=== PATIENT | male | born 1995 | race Caucasian/White ===

== ENCOUNTER 2018-08-06 23:23 | Emergency (ER) | payer MEDICAID ==
[~2018-08-06] VITALS: Ht 185.4 cm; Wt 65.8 kg
[2018-08-06] MEDS ORDERED: GENVOYA TABLET1 EACH PO (23:29)
[2018-08-06 23:38] VITALS: BP 128/77
[2018-08-06] MEDS ORDERED: Bactrim-DS 1 tab ORAL ONE (23:45)
--- NOTE | 2018-08-06 23:46 | Emergency Room Report ---
History of Present Illness General Chief Complaint: Abdominal Pain Source: Patient Present Illness HPI This is a 23-year-old male with a history of HIV but not on medication for last 6 months. He presents with chief complaint of rectal bleeding. This is a chronic problem for many months. He had colonoscopy done at [facility] in [place] over the summer. He was told that he had internal hemorrhoids and polyps. He said the bleeding is worse. He also complaining of an abscess to his right arm that's been draining. Denies any fever or chills. Denies any nausea vomiting. Has some abdominal cramping pain. Did not have a endoscopy. No other complaint. Rectal bleeding is bright red blood. No pain. Last anal sex was a week ago. Allergies: Coded Allergies: No Known Allergies (Unverified , 08/06/18) Patient History Past Medical History: see triage record, old chart reviewed, HIV Past Surgical History: other Pertinent Family History: none Social History: Denies: smoking Immunizations: other Reviewed Nursing Documentation: PMH: Agreed; PSxH: Agreed Nursing Documentation-PMH Hx Cardiac Problems: No - HIV/SIDS History Of Psychiatric Problem: Yes Review of Systems Eye: Denies: eye pain, blurred vision ENT: Denies: ear pain, nose congestion, throat swelling Respiratory: Denies: cough, shortness of breath Cardiovascular: Denies: chest pain, palpitations Gastrointestinal: Denies: abdominal pain, diarrhea, nausea, vomiting Musculoskeletal: Denies: back pain, joint pain Skin: Denies: rash Neurological: Denies: headache, numbness Endocrine: Denies: increased thirst, increased urine Hematologic/Lymphatic: Denies: easy bruising All Other Systems: negative except mentioned in HPI Physical Exam Vital Signs Date Time Temp Pulse Resp B/P (MAP) Pulse Ox O2 Delivery O2 Flow Rate FiO2 08/06/18 23:24 98.1 131 16 128/77 98 Room Air vitals with tachycardia. Repeat heart rate 116 Sp02 EP Interpretation: reviewed, normal General Appearance: well appearing, no apparent distress, alert Head: normocephalic, atraumatic Eyes: bilateral eye PERRL, bilateral eye EOMI ENT: hearing grossly normal, normal pharynx Neck: full range of motion, supple, no meningismus Respiratory: chest non-tender, lungs clear, normal breath sounds Cardiovascular #1: regular rate, rhythm, no murmur Gastrointestinal: normal bowel sounds, non tender, no mass, no organomegaly, no bruit, non-distended Rectal: other - No external hemorrhoid. There is bright red blood on my fingertip with rectal exam. Musculoskeletal: back normal, gait/station normal, normal range of motion, other - Right upper extremity:There is a draining abscess on his distal biceps area and proximal forearm. Neurologic: alert, oriented x3 Psychiatric: mood/affect normal Skin: warm/dry Medical Decision Making Diagnostic Impression: Primary Impression: Rectal bleeding Additional Impressions: Abscess Methamphetamine abuse ER Course Patient presents with rectal bleeding. Hemoglobin is stable. Most likely secondary to his internal hemorrhoid. He had recent colonoscopy done already. He was concerned about Shigella and trichinosis. clinically he doesn't have any diarrhea to indicate that he has Shigella. He is unable to give any stool sample to send for culture. Also as far trichinosis, again he has no diarrhea or any worms. All of this workup can be done as an outpatient with his primary care doctor. I advised him to stop using drugs and take his antibiotics. His tachycardia may be secondary to anxiety and drug abuse. Once he is calm, his heart rate is in the 90s.We'll discharge home. Last Vital Signs Date Time Temp Pulse Resp B/P (MAP) Pulse Ox O2 Delivery O2 Flow Rate FiO2 08/06/18 23:24 98.1 131 16 128/77 98 Room Air Status: improved Disposition: HOME, SELF-CARE Condition: Stable Scripts Mupirocin* (MUPIROCIN*) 22 Gm Oint...g. 1 APPLIC TOPIC THREE TIMES A DAY, #22 GM Prov: Laci Hernandez MD 08/07/18 Trimethoprim/Sulfamethoxazole 160/800* (BACTRIM DS TABLET*) 1 Each Tablet 1 TAB ORAL Q12H, #14 TAB 0 Refills Prov: Laci Hernandez MD 08/07/18 Referrals: NOT CHOSEN IPA/,REFERRING (PCP) Additional Instructions: Stop using drugs. Follow-up with your doctor within a week for restarting your HIV medication. If you're concern about infectious diarrhea, your doctor consent a stool sample for culture. Return if symptom worsen. Laci Hernandez MD Aug 06, 2018 23:46
[2018-08-07 00:06] LABS: BASOPHILS % (AUTO) 0.8 % (0.0-2.0); EOSINOPHILS % (AUTO) 1.7 % (0.0-3.0); HEMATOCRIT 36.6 % (42.0-52.0); HEMOGLOBIN 12.5 G/DL (14.2-18.0); LYMPHOCYTES % (AUTO) 31.1 % (20.0-45.0); MEAN CORPUSCULAR VOLUME 82 FL (80-99); MONOCYTES % (AUTO) 6.6 % (1.0-10.0); NEUTROPHILS % (AUTO) 59.8 % (45.0-75.0); PLATELET COUNT 297 K/UL (150-450); RED BLOOD COUNT 4.45 M/UL (4.70-6.10); RED CELL DISTRIBUTION WIDTH 11.2 % (11.6-14.8); WHITE BLOOD COUNT 6.2 K/UL (4.8-10.8)
[2018-08-07 00:20] LABS: ANION GAP 5 mmol/L (5-15); BLOOD UREA NITROGEN 12 mg/dL (7-18); CALCIUM 8.7 MG/DL (8.5-10.1); CARBON DIOXIDE 30 MMOL/L (21-32); CHLORIDE 100 MMOL/L (98-107); CREATININE 1.1 MG/DL (0.55-1.30); POTASSIUM 3.5 MMOL/L (3.5-5.1); SODIUM 135 MMOL/L (136-145)
[2018-08-07] MEDS ORDERED: Bacitracin Oint UD TOPIC ONE (00:45)
[2018-08-07 00:49] LABS: BILIRUBIN, URINE NEGATIVE (NEGATIVE); GLUCOSE, URINE (UA) NEGATIVE (NEGATIVE); KETONES,URINE NEGATIVE (NEGATIVE); LEUKOCYTE ESTERASE ,URINE 1+ (NEGATIVE); NITRITE,URINE NEGATIVE (NEGATIVE); PH,URINE 6 (4.5-8.0); PROTEIN,URINE 2+ (NEGATIVE); UROBILINOGEN,URINE 4 MG/DL (0.0-1.0)
[2018-08-07 00:53] LABS: APPEARANCE,URINE CLEAR; COLOR,URINE YELLOW
[2018-08-07] MEDS ORDERED: BACTRIM DS TAB1 EAC1 ORAL (01:10)
[2018-08-07] MEDS ORDERED: MUPIROCIN22 GM TOPIC (01:11)
[2018-08-07 02:44] VITALS: BP 112/82
== END 2018-08-07 01:35 | disposition home or self-care (01) ==
LOC: EDBD 23:23 → EMR 23:32
DX: K62.5 Hemorrhage of anus and rectum (principal); F15.10 Other stimulant abuse, uncomplicated; L02.413 Cutaneous abscess of right upper limb
CPT/HCPCS: 36415; 80048; 80307; 81001; 85025; 96360; 99283